=== PATIENT | female | born 1995 | race Caucasian/White ===

== ENCOUNTER 2016-07-18 07:18 | Emergency (ER) | payer BC, OTHER ==
[~2016-07-18] VITALS: Ht 157.5 cm; Wt 57.8 kg
[~2016-07-18 07:18] MED LIST: AMX500 PO; [UNRECOGNIZED DRUG - OTHER]
[2016-07-18 07:22] VITALS: TEMP 36.9; Ht 157.5 cm; Wt 57.8 kg
[2016-07-18] MEDS ORDERED: SULFAMETHOXAZOLE/TRIMETHOPRIM DS 800/160MG TAB PO STA (07:27)
[2016-07-18] MEDS ORDERED: PHENAZOPYRIDINE HCL 200 MG TAB PO STA (07:27)
[2016-07-18] MEDS ORDERED: IUD'IUD (07:52)
[2016-07-18] MEDS ORDERED: DSY/150 PO (07:52)
[2016-07-18 07:55] LABS: MANUAL MICROSCOPIC REQUIRED? NO; REVIEW REQ? YES; URINE APPEARANCE CLOUDY (CLEAR); URINE BILIRUBIN NEG (NEG); URINE COLOR DK YELLOW; URINE EPITHELIAL CELL AUTO >30 /lpf (0-5); URINE NITRITE NEG (NEG); URINE SPECIFIC GRAVITY 1.023 (1.000-1.030); UROBILINOGEN NEG (NEG); ZZUR CULT IF INDIC CLEAN CATCH YES
[2016-07-18] MEDS ORDERED: PHEN-876 PO (08:07)
[2016-07-18] MEDS ORDERED: SULF800T23 PO (08:07)
--- NOTE | 2016-07-18 08:08 | EMERGENCY ROOM VISIT NOTE ---
History First contact with patient: 07:52 Chief Complaint: URINARY SYMPTOMS Stated Complaint: BURNING DURING URINATION,CHILLS,URGE TO PEE Nursing Triage Summary: Frequency and Burning with Urination since 0430. History of Present Illness The patient is a 21 year old female who presents to the Emergency Room via private vehicle accompanied by mother with complaints of "burning during urination, chills, urgency p.m.". The patient states that she has had urinary burning and urgency for the past 3 hours. She has a history of UTI. There is associated dysuria, urgency, nausea, frequency, intermittent low back pain as well as chills and diarrhea. Patient began with the chills and diarrhea 3 hours prior to arrival. She denies any fever, hematuria, abdominal pain or vomiting. Patient is sexually active with one partner. Past medical history is significant for sleep disorder. Review of Systems A complete 10-point Review of Systems was discussed with the patient, with pertinent positives and negatives listed in the History of Present Illness. All remaining Review of Systems questions can be considered negative unless otherwise specified. Past Medical/Surgical History Urinary problems, skin problems, wisdom teeth extraction, sleep disorder. Family History Diabetes, heart disease, high blood pressure, cancer, gallbladder disease, kidney disease or stones. Social History Smoking Status: Never Smoker Alcohol Use: none Marital Status: single Social History: Patient lives at home with roommates, denies tobacco use and admits to alcohol use. Current/Historical Medications Scheduled Phenazopyridine HCl (Pyridium), 200 MG PO TID Sulfa/Trimethoprim (Bactrim Ds 800MG/160MG), 1 TAB PO BID Trazodone HCl (Trazodone HCl), 150 MG PO HS Miscellaneous Medications Iud's ([facility]) Allergies Coded Allergies: No Known Allergies (Unverified , 07/18/16) Physical Exam Vital Signs Date Time Temp Pulse Resp B/P Pulse Ox O2 Delivery O2 Flow Rate FiO2 07/18/16 08:16 65 16 115/65 97 07/18/16 07:22 36.9 60 16 127/82 100 Room Air Physical Exam VITAL SIGNS - Vital signs and nursing notes were reviewed. Patient is afebrile , normotensive, non-tachycardic and saturating well on room air 100%. GENERAL -21-year-old female appearing her stated age who is in no acute distress. Communicates well with provider and answers questions appropriately. SKIN - Without rashes. HEAD - NC/AT. EYES - PERRL with EOMI bilaterally. Sclera anicteric. Palpebral conjunctiva pink and moist with no injection noted. EARS - No deformities of external structures noted on gross examination bilaterally. NOSE - Midline and without cyanosis. No epistaxis or purulent drainage noted. Septum midline without deviation or septal hematoma noted. MOUTH/OROPHARYNX - Without perioral cyanosis. Buccal mucosa pink and moist and without leukoplakia. Tongue midline with equal elevation of palate bilaterally. No tonsillar hypertrophy, erythema, or exudates noted. Good dentition noted. NECK - Neck with FROM. Supple to palpation. No lymphadenopathy noted. No nuchal rigidity. LUNGS - Chest wall symmetric without accessory muscle use, intercostals retractions, or central cyanosis. Normal vesicular breath sounds CTA B/L. No wheezes, rales, or rhonchi appreciated. CARDIAC - RRR with S1/S2. No murmur, rubs, or gallops appreciated. ABDOMEN - Abdominal contour without pulsations or visible masses. BS normoactive all four quadrants. No tenderness, palpable masses, hepatosplenomegaly, or ascites noted. MUSCULOSKELETAL: No CVA tenderness. EXTREMITIES - No clubbing or peripheral cyanosis. No pretibial edema present. + 5/5 strength noted in UE/LE bilaterally. Medical Decision & Procedures Laboratory Results Test 07/18/16 07:49 Urine Color DK YELLOW Urine Appearance CLOUDY (CLEAR) Urine pH 5.0 (4.5-7.5) Urine Specific Arabi 1.023 (1.000-1.030) Urine Protein TRACE (NEG) Urine Glucose (UA) TRACE (NEG) Urine Ketones NEG (NEG) Urine Occult Blood 3+ (NEG) Urine Nitrite NEG (NEG) Urine Bilirubin NEG (NEG) Urine Urobilinogen NEG (NEG) Urine Leukocyte Esterase LARGE (NEG) Urine WBC (Auto) >30 /hpf (0-5) Urine RBC (Auto) >30 /hpf (0-4) Urine Hyaline Casts (Auto) 1-5 /lpf (0-5) Urine Epithelial Cells (Auto) >30 /lpf (0-5) Urine Bacteria (Auto) 1+ (NEG) Urine Yeast (Auto) (NONE PRSENT) Urine Test NEG (NEG) Medications Administered Medications (Trade) Dose Ordered Sig/Tasha Route Start Time Stop Time Status Last Admin Dose Admin Trimethoprim/ Sulfamethoxazole (Septra Ds 800/ 160MG Tab) 1 tab NOW STAT PO 07/18/16 07:27 07/18/16 07:29 DC 07/18/16 07:42 1 TAB Phenazopyridine HCl (Pyridium Tab) 200 mg NOW STAT PO 07/18/16 07:27 07/18/16 07:29 DC 07/18/16 07:42 200 MG Medical Decision Patient was seen and evaluated as above. After obtaining a thorough history, urinalysis, Bactrim and pyridium were ordered. Urine test was also ordered. Urine revealed trace protein, 3+ occult blood, large leukocyte esterase, greater than 30 white blood cells, greater than 30 red blood cells, 1 + urine bacteria and greater than 30 epithelial cells. Urine test was negative. I suspect the patient is expressing hemorrhagic cystitis. Upon examine through history the patient is a longer expressing the diarrhea, or nausea. She is well-appearing. No evidence to suggest pyelonephritis. Patient 's vital signs are stable. I do not feel that any additional laboratory studies will beneficial in aiding in today's diagnosis. She will be discharged with Pyridium and Bactrim for her symptoms. She was educated upon today's findings, educated upon the importance of follow-up as well as return with any new/concerning symptoms. She had questions answered prior to discharge, and was discharged home in good condition. In the evaluation and treatment of this patient the following differential diagnoses were entertained: UTI, hemorrhagic cystitis, pyelonephritis, sepsis, among others. Impression Primary Impression: Symptoms of urinary tract infection Additional Impression: Hemorrhagic cystitis Departure Information Dispostion Home / Self-Care Condition GOOD Prescriptions Phenazopyridine HCl (Pyridium) 200 Mg Tab 200 MG PO TID for 2 Days, #6 TAB Prov: Frank Leyva PA-C 07/18/16 Sulfa/Trimethoprim (Bactrim Ds 800MG/160MG) Tab 1 TAB PO BID for 7 Days, #14 TAB Prov: Frank Leyva PA-C 07/18/16 Referrals Jason Chaidez M.D. (PCP) Patient Instructions My [facility] Additional Instructions You have been treated in the Emergency Department for a Urinary Tract Infection (UTI). You have been prescribed Bactrim to be taken Twice daily for 7 days. This is an antibiotic. All antibiotics have the potential to cause diarrhea. Stop this medication and contact a medical provider if you were to develop any significant adverse side effects including: wheezing, shortness of breath, passing out, vomiting, or a diffuse rash. Always take antibiotics as directed and COMPLETE the ENTIRE course regardless of the improvement of your symptoms. You have been prescribed Pyridium to be taken as prescribed, three times daily for 2 days. This medicine will help with the urinary symptoms that you have been experiencing. Be aware that Pyridium may turn your urine a red-orange or brown color. This effect is harmless. For pain control, you can use the following [id number] medicines (if >12 yo): - Regular strength (325mg/tab) Tylenol (acetaminophen) 2 tabs every 4-6 hours as needed. Do not exceed 12 tablets in a 24 hour period. Avoid taking more than 4 grams (4000 mg) of Tylenol per day. This includes any other sources of acetaminophen you may take on a regular basis. - Regular strength (200 mg/tab) Advil (ibuprofen) 1-2 tabs every 4-6 hours as needed. Do not exceed a dose of 3200 mg per day. Return to the emergency department if your symptoms worsen despite treatment course outlined above. Drink plenty of water and stay well hydrated. As with any trip to the Emergency Department, you should follow-up with your Primary Care Provider from today's visit. Return to the emergency department if your symptoms persist despite treatment plan outlined above or if the following symptoms occur: increased fevers, chills , low back pain, nausea/vomiting, or blood in your urine. Please return to the emergency department with any new/concerning symptoms. Problem Qualifiers
[2016-07-18 08:16] VITALS: BP 115/65; PULSE 65; O2SAT 97
== END 2016-07-18 08:17 | disposition home or self-care (01) ==
LOC: C.EDB 07:20 → C.EDA 08:17
DX: R30.0 Dysuria (principal); R39.15 Urgency of urination; R35.0 Frequency of micturition; N30.90 Cystitis, unspecified without hematuria; Z87.440 Personal history of urinary (tract) infections; Z83.3 Family history of diabetes mellitus; Z82.49 Family history of ischemic heart disease and other diseases of the circulatory system; Z84.1 Family history of disorders of kidney and ureter

== ENCOUNTER → 2016-10-06 | Outpatient (CLI) | payer OTHER ==
[~2016-10-06] MED LIST changes: -AMX500 PO; +DSY/150 PO; +IUD'IUD; -[UNRECOGNIZED DRUG - OTHER]
== END | disposition home or self-care (01) ==
LOC: C.PAPS 16:16
PROVIDERS: ATTEND Obstetrics & Gynecology
DX: Z01.411 Encounter for gynecological examination (general) (routine) with abnormal findings (principal); R87.612 Low grade squamous intraepithelial lesion on cytologic smear of cervix (LGSIL)

== ENCOUNTER → 2017-07-21 | Outpatient (CLI) | payer OTHER | END | disposition home or self-care (01) | LOC: C.LABSPEC 13:50 | PROVIDERS: ATTEND Physician Assistant | DX: Z30.430 Encounter for insertion of intrauterine contraceptive device (principal) ==